=== PATIENT | male | born 1945 | race Caucasian/White ===

== ENCOUNTER 2018-02-08 08:26 | Day surgery (SDC) | payer BC, OTHER ==
[~2018-02-08] VITALS: Ht 182.9 cm; Wt 138.4 kg
[~2018-02-08 08:26] MED LIST: ALEVE220 MG PO; AMLODIPINE BESYL5 MG PO; ASPIR-LOW81 MG PO; HYDROCHLOROTHIA25 MG PO; LISINOPRIL20 MG PO; METFORMIN HCL500 MG PO; METOPROLOL SUC100 MG PO; NOVOLOG PE100 UNITS/ SC; TRESIBA FL200 UNIT/1 SC
== END 2018-02-08 14:50 | disposition home or self-care (01) ==
LOC: CATH 08:26
PROVIDERS: Internal Medicine Cardiovascular Disease
DX: I25.10 Atherosclerotic heart disease of native coronary artery without angina pectoris (principal); E11.9 Type 2 diabetes mellitus without complications; I10 Essential (primary) hypertension; E78.5 Hyperlipidemia, unspecified; I35.0 Nonrheumatic aortic (valve) stenosis; G56.00 Carpal tunnel syndrome, unspecified upper limb; Z79.82 Long term (current) use of aspirin; Z79.4 Long term (current) use of insulin
CPT/HCPCS: 82948; C1769; C1887; J1644; J2250; J3010; J7040

== ENCOUNTER 2018-03-22 10:07 | Day surgery (SDC) | payer BC, OTHER ==
[~2018-03-22] VITALS: Ht 182.9 cm; Wt 136.8 kg
[2018-03-22 11:03] LABS: HEMATOCRIT 43.8 % (38.0-50.0); HEMOGLOBIN 15.3 G/DL (12.5-16.6); MCH 29.8 PG (29.0-34.0); MCHC 34.9 G/DL (30.0-36.0); MCV 85.4 FL (86-99); PLATELET COUNT 182 K/uL (156-360); RBC DIS.WIDTH-CV 12.8 % (11.8-14.6); RBC DIS.WIDTH-SD 39.3 % (39-53); RED BLOOD COUNT 5.13 M/uL (4.00-5.50)
[2018-03-22 11:33] LABS: CHLORIDE 105 MEQ/L (99-109); CREATININE 1.1 MG/DL (0.6-1.3); GFR ESTIMATE (CALCULATED) > 59 mL/min/ (58.99-99999); GLUCOSE 225 mg/dL (70-99); POTASSIUM 4.4 MEQ/L (3.7-5.4); SODIUM 137 MEQ/L (136-147); UREA NITROGEN (BUN) 23 mg/dL (9-23)
[2018-03-22 14:50] VITALS: BP 145/66
[2018-03-22 15:00] VITALS: BP 145/66
[2018-03-22 16:37] VITALS: BP 154/68
[2018-03-22 19:00] VITALS: BP 138/66
[2018-03-22 22:30] VITALS: BP 130/63
[2018-03-23 04:30] VITALS: BP 161/75
[2018-03-23 05:25] LABS: BASOPHIL (%) 0.7 % (0-1); EOSINOPHIL (%) 3.3 % (0-5); EOSINOPHIL COUNT 0.2 K/uL (0-0.3); HEMATOCRIT 41.5 % (38.0-50.0); HEMOGLOBIN 14.5 G/DL (12.5-16.6); IMMATURE GRANULOCYTE (%) 0.5 % (0.0-0.7); MCH 29.8 PG (29.0-34.0); MCHC 34.9 G/DL (30.0-36.0); MCV 85.4 FL (86-99); MONOCYTE (%) 9.6 % (3-12); MONOCYTE COUNT 0.6 K/uL (0-0.8); NEUTROPHIL (%) 69.9 % (45-76); NEUTROPHIL COUNT 4.3 K/uL (1.8-6.4); PLATELET COUNT 167 K/uL (156-360); RBC DIS.WIDTH-CV 12.7 % (11.8-14.6); RBC DIS.WIDTH-SD 39.5 % (39-53); RED BLOOD COUNT 4.86 M/uL (4.00-5.50); WHITE BLOOD COUNT 6.1 K/uL (4.1-10.2)
[2018-03-23 06:15] LABS: CHLORIDE 107 MEQ/L (99-109); GFR ESTIMATE (CALCULATED) > 59 mL/min/ (58.99-99999); GLUCOSE 126 mg/dL (70-99); SODIUM 138 MEQ/L (136-147); UREA NITROGEN (BUN) 17 mg/dL (9-23)
[2018-03-23] MEDS ORDERED: EFFIENT10 MG PO (07:31)
[2018-03-23 08:00] VITALS: BP 146/63
== END 2018-03-23 10:54 | disposition home or self-care (01) ==
LOC: CATH 10:07 → 2SOUTH 13:42 → 4EAST 13:42 → 2SOUTH 13:42 → ENRESERV 13:54 → 4EAST 15:06 → ENPENDDIS 03-23 → 4EAST 03-23 10:54
PROVIDERS: Internal Medicine Cardiovascular Disease
PROC: B245ZZ3 Ultrasonography of Left Heart, Intravascular (ICD-10-PCS; principal; 2018-03-22)
PROC: 4A023N7 Measurement of Cardiac Sampling and Pressure, Left Heart, Percutaneous Approach (ICD-10-PCS; principal; 2018-03-22)
PROC: B2101ZZ Fluoroscopy of Single Coronary Artery using Low Osmolar Contrast (ICD-10-PCS; principal; 2018-03-22)
DX: I25.10 Atherosclerotic heart disease of native coronary artery without angina pectoris (principal); E11.9 Type 2 diabetes mellitus without complications; Z79.4 Long term (current) use of insulin; Z79.82 Long term (current) use of aspirin
CPT/HCPCS: 80048; 82948; 85025; 85027; 85347; 93005; C1725; C1769; C1874; C1887; G0378; J1644; J1815; J2250; J3010; J7030

== ENCOUNTER 2018-05-10 08:24 | Day surgery (SDC) | payer BC, OTHER ==
[~2018-05-10] VITALS: Ht 182.9 cm; Wt 134.0 kg
[~2018-05-10 08:24] MED LIST changes: +EFFIENT10 MG PO
[2018-05-10 09:29] LABS: HEMATOCRIT 44.5 % (38.0-50.0); HEMOGLOBIN 15.6 G/DL (12.5-16.6); MCH 29.6 PG (29.0-34.0); MCHC 35.1 G/DL (30.0-36.0); MCV 84.4 FL (86-99); PLATELET COUNT 184 K/uL (156-360); RBC DIS.WIDTH-CV 12.9 % (11.8-14.6); RBC DIS.WIDTH-SD 39.4 % (39-53); RED BLOOD COUNT 5.27 M/uL (4.00-5.50); WHITE BLOOD COUNT 7.2 K/uL (4.1-10.2)
[2018-05-10 09:51] LABS: CHLORIDE 102 MEQ/L (99-109); CREATININE 1.2 MG/DL (0.6-1.3); GFR ESTIMATE (CALCULATED) > 59 mL/min/ (58.99-99999); GLUCOSE 244 mg/dL (70-99); SODIUM 134 MEQ/L (136-147); UREA NITROGEN (BUN) 22 mg/dL (9-23)
[2018-05-10 13:25] VITALS: BP 131/69
[2018-05-10 15:46] VITALS: BP 146/66
[2018-05-10 19:00] VITALS: BP 152/68
[2018-05-10 23:20] VITALS: BP 129/60
[2018-05-11 05:00] VITALS: BP 158/72
[2018-05-11 05:52] LABS: BASOPHIL (%) 0.5 % (0-1); EOSINOPHIL (%) 3.3 % (0-5); EOSINOPHIL COUNT 0.2 K/uL (0-0.3); HEMATOCRIT 44.3 % (38.0-50.0); HEMOGLOBIN 15.4 G/DL (12.5-16.6); IMMATURE GRANULOCYTE (%) 0.6 % (0.0-0.7); LYMPHOCYTE (%) 15.2 % (15-42); MCH 29.6 PG (29.0-34.0); MCHC 34.8 G/DL (30.0-36.0); MONOCYTE (%) 9.6 % (3-12); MONOCYTE COUNT 0.6 K/uL (0-0.8); NEUTROPHIL (%) 70.8 % (45-76); NEUTROPHIL COUNT 4.6 K/uL (1.8-6.4); PLATELET COUNT 180 K/uL (156-360); RBC DIS.WIDTH-CV 12.8 % (11.8-14.6); RBC DIS.WIDTH-SD 39.4 % (39-53); RED BLOOD COUNT 5.21 M/uL (4.00-5.50); WHITE BLOOD COUNT 6.5 K/uL (4.1-10.2)
[2018-05-11 06:56] LABS: CHLORIDE 103 MEQ/L (99-109); CREATININE 1.2 MG/DL (0.6-1.3); GFR ESTIMATE (CALCULATED) > 59 mL/min/ (58.99-99999); GLUCOSE 145 mg/dL (70-99); SODIUM 135 MEQ/L (136-147); UREA NITROGEN (BUN) 22 mg/dL (9-23)
== END 2018-05-11 09:24 | disposition home or self-care (01) ==
LOC: CATH 08:24 → 2SOUTH 11:10 → ENRESERV 11:13 → 4EAST 13:15
PROVIDERS: Internal Medicine Cardiovascular Disease; Nurse Practitioner Family
DX: I25.118 Atherosclerotic heart disease of native coronary artery with other forms of angina pectoris (principal); E11.9 Type 2 diabetes mellitus without complications; I10 Essential (primary) hypertension; I25.2 Old myocardial infarction; Z79.4 Long term (current) use of insulin; Z79.82 Long term (current) use of aspirin
CPT/HCPCS: 80048; 82948; 85025; 85027; 85347; 93005; C1725; C1760; C1769; C1874; C1887; C1894; G0378; J1644; J1815; J2250; J3010; J7030